=== PATIENT | male | born 1980 | race Caucasian/White ===

== ENCOUNTER 2025-04-11 20:09 | Emergency (ER) | payer BC ==
[~2025-04-11] VITALS: Ht 182.9 cm; Wt 108.9 kg
[2025-04-11 20:34] LABS: BASOPHILS # (AUTO) 0.1 K/UL (0.0-0.2); BASOPHILS % (AUTO) 0.9 % (0.0-2.0); EOSINOPHILS # (AUTO) 0.3 K/uL (0.0-0.7); EOSINOPHILS % (AUTO) 3.3 % (0.0-7.0); HEMATOCRIT 47.6 % (36.7-47.1); HEMOGLOBIN 15.7 g/dL (12.5-16.3); LYMPHOCYTES # (AUTO) 2.5 K/uL (0.8-4.8); LYMPHOCYTES % (AUTO) 27.7 % (20.5-51.5); MEAN CORPUSCULAR HEMOGLOBIN 30.6 uug (23.8-33.4); MEAN CORPUSCULAR HGB CONC 33 g/dL (32.5-36.3); MEAN CORPUSCULAR VOLUME 92.9 fL (73.0-96.2); MONOCYTES # (AUTO) 0.7 K/uL (0.1-1.30); MONOCYTES % (AUTO) 7.7 % (0.0-11.0); NEUTROPHILS # (AUTO) 5.4 K/uL (1.8-8.9); NEUTROPHILS % (AUTO) 60.4 % (38.5-71.5); PLATELET COUNT (AUTO) 300 K/uL (152-348); RED BLOOD CELL COUNT(AUTO) 5.12 MIL/uL (4.06-5.63); RED CELL DISTRIBUTION WIDTH 14.1 % (12.1-16.2); WHITE BLOOD COUNT (AUTO) 8.9 K/uL (3.6-10.2)
[2025-04-11 20:36] LABS: DIFFERENTIAL COMMENT 1
[2025-04-11 20:54] LABS: CALCIUM 9.1 mg/dL (8.5-10.1); POTASSIUM 4.9 mmol/L (3.5-5.1)
[2025-04-11] MEDS ORDERED: levETIRAcetam 500 MG/5 ML VIAL IV ONE (20:56)
[2025-04-11 21:00] LABS: ETHANOL < 3 MG/DL (0-10)
[2025-04-11 21:01] LABS: ALBUMIN 3.4 g/dL (3.4-5.0); BILIRUBIN,TOTAL 0.2 mg/dL (0.2-1.0); TOTAL PROTEIN, SERUM 6.6 g/dL (6.4-8.2)
[2025-04-11 21:04] LABS: *BILIRUBIN,URIN NEGATIVE (NEGATIVE); *BLOOD, URINE NEGATIVE (NEGATIVE); *CLARITY,URINE CLEAR (CLEAR); *COLOR,URINE YELLOW (YELLOW); *KETONES,URINE NEGATIVE (NEGATIVE); *PROTEIN,URINE NEGATIVE (NEGATIVE); *UROBILINOGEN,URINE 0.2 E.U./dl (NORMAL); LEUKOCYTE ESTERASE ,URINE NEGATIVE (NEGATIVE); NITRITE, URINE NEGATIVE (NEGATIVE); PH,URINE 6.5 (5.0-8.0); UGLUCOSE NEGATIVE (NEGATIVE)
[2025-04-11] MEDS: levETIRAcetam IV 1,000 MG in IV DEXTROSE 5% 100 ML IV STA (21:16)
[2025-04-11] MEDS: IV NS 1000 ML 1,000 ML IV ONE (21:16)
[2025-04-11 21:30] LABS: *AMPHETAMINE, URINE NEGATIVE (NEGATIVE); *BARBITURATE, URINE NEGATIVE (NEGATIVE); *BENZODIAZEPINE, URINE POSITIVE (NEGATIVE); *CANNABINOID, URINE NEGATIVE (NEGATIVE); *COCCAINE, URINE NEGATIVE (NEGATIVE); *OPIATE, URINE NEGATIVE (NEGATIVE); *PHENCYCLIDINE SCREEN,URINE NEGATIVE (NEGATIVE); FENTANYL, URINE NEGATIVE (NEGATIVE)
[2025-04-11] MEDS ORDERED: GABA-532 PO (22:01)
[2025-04-11] MEDS ORDERED: TRAZ-182 PO (22:01)
[2025-04-11] MEDS ORDERED: ONDA4TAB5 PO (22:01)
[2025-04-11] MEDS ORDERED: LEVE500T83 PO (22:01)
[2025-04-11] MEDS ORDERED: CLON0.1T PO (22:01)
[2025-04-11] MEDS ORDERED: DIAZ10TA4 PO ×2 (22:01)
[2025-04-12 00:34] VITALS: BP 134/92; TEMP 98; O2SAT 95
== END 2025-04-12 00:34 | disposition left against medical advice (07) ==
LOC: ER 20:15
DX: R56.9 Unspecified convulsions (principal); R06.02 Shortness of breath
CPT/HCPCS: 80053; 81003; 83880; 85025; 84484; 36415; 71045; 70450; 93005; 99285; 96365; 80320; 80307; J1953 ×2; J7040; A4606; A4663; G0480

== ENCOUNTER 2025-04-12 02:16 | Inpatient (IN) | payer BC ==
[~2025-04-12] VITALS: Ht 182.9 cm; Wt 118.4 kg
[~2025-04-12 02:16] MED LIST: CLON0.1T PO; DIAZ10TA4 PO; GABA-532 PO; LEVE500T83 PO; ONDA4TAB5 PO; TRAZ-182 PO
[2025-04-12] MEDS ORDERED: MAGNESIUM HYDROXIDE 30 ML LIQUID UDC PO PRN (02:45)
[2025-04-12] MEDS ORDERED: ACETAMINOPHEN 325 MG TABLET PO PRN (02:45)
[2025-04-12] MEDS ORDERED: ONDANSETRON 4 MG/2 ML VIAL IV PRN (02:45)
[2025-04-12] MEDS: IV NS 1000 ML 1,000 ML IV PRN (04:12)
[2025-04-12] MEDS: LORAZEPAM 2 MG/1 ML VIAL IV PRN (04:14)
[2025-04-12] MEDS: CHLORDIAZEPOXIDE HCL 25 MG CAPSULE PO SCH (06:11)
[2025-04-12] MEDS: PANTOPRAZOLE SODIUM 40 MG TABLET.DR PO SCH (06:11)
[2025-04-12 07:29] LABS: BASOPHILS # (AUTO) 0.1 K/UL (0.0-0.2); BASOPHILS % (AUTO) 0.9 % (0.0-2.0); EOSINOPHILS # (AUTO) 0.3 K/uL (0.0-0.7); EOSINOPHILS % (AUTO) 3.7 % (0.0-7.0); HEMATOCRIT 45.5 % (36.7-47.1); HEMOGLOBIN 15.1 g/dL (12.5-16.3); LYMPHOCYTES # (AUTO) 2.6 K/uL (0.8-4.8); LYMPHOCYTES % (AUTO) 28.9 % (20.5-51.5); MEAN CORPUSCULAR HEMOGLOBIN 30.8 uug (23.8-33.4); MEAN CORPUSCULAR HGB CONC 33 g/dL (32.5-36.3); MONOCYTES # (AUTO) 0.7 K/uL (0.1-1.30); MONOCYTES % (AUTO) 7.4 % (0.0-11.0); NEUTROPHILS # (AUTO) 5.2 K/uL (1.8-8.9); NEUTROPHILS % (AUTO) 59.1 % (38.5-71.5); PLATELET COUNT (AUTO) 314 K/uL (152-348); WHITE BLOOD COUNT (AUTO) 8.9 K/uL (3.6-10.2)
[2025-04-12 07:36] VITALS: BP 127/88; TEMP 97.9; O2SAT 94
[2025-04-12 07:40] LABS: DIFFERENTIAL COMMENT 1
[2025-04-12 07:49] LABS: ALBUMIN 3.2 g/dL (3.4-5.0); BILIRUBIN,DIRECT 0.1 mg/dL (0.0-0.2); BILIRUBIN,TOTAL 0.2 mg/dL (0.2-1.0); CALCIUM 8.7 mg/dL (8.5-10.1); MAGNESIUM 2.2 mg/dL (1.8-2.4); PHOSPHOROUS 5.1 mg/dL (2.5-4.9); TOTAL PROTEIN, SERUM 6.4 g/dL (6.4-8.2)
[2025-04-12] MEDS: levETIRAcetam IV 500 MG in IV DEXTROSE 5% 100 ML IV SCH (08:42)
[2025-04-12 08:57] LABS: THYROID STIMULATING HORMONE 2.274 mIU/mL (0.358-3.740)
[2025-04-12] MEDS: GABAPENTIN 100 MG CAPSULE PO ONE (10:08)
[2025-04-12] MEDS: ONDANSETRON HCL 4 MG TABLET PO PRN (10:08)
== END 2025-04-12 10:30 | disposition other institution (70) | DRG 897 ==
LOC: ER 02:28 → TELE3 02:39 → MEDSURG3 10:15
PROVIDERS: ADMIT Nurse Practitioner Family; ATTEND Internal Medicine
DX: F10.139 Alcohol abuse with withdrawal, unspecified (principal); R56.9 Unspecified convulsions; F17.210 Nicotine dependence, cigarettes, uncomplicated; F10.10 Alcohol abuse, uncomplicated; Z79.899 Other long term (current) drug therapy; Z68.35 Body mass index [BMI] 35.0-35.9, adult; E66.9 Obesity, unspecified
CPT/HCPCS: 36415; 83735; 84100; 84443; 85025; A4606; A4663; G0378; J1953; J2060; J7040; Q0162